=== PATIENT | female | born 1985 | race Caucasian/White ===

== ENCOUNTER 2018-11-29 17:31 | Emergency (ER) | payer OTHER ==
--- NOTE | 2018-11-29 20:26 | EDM.PDOC ---
ED HPI GENERAL MEDICAL PROBLEM - General Chief Complaint: Laceration Stated Complaint: INJURY TO THUMB ON L HAND Time Seen by Provider: 11/29/18 17:31 Source of Information: Reports: Patient History Limitations: Reports: No Limitations - History of Present Illness INITIAL COMMENTS - FREE TEXT/NARRATIVE: Pt. states that she cut her L thumb with a bread knife. Her tetanus is up to date (2011). She states that the injury is quite superficial to the thumb. Denies injury elsewhere. She states that this happened just prior to coming to the ED. Onset: Today Location: Reports: Upper Extremity, Left Left Finger-Thumb Pain Score (Numeric/FACES): 1 - Related Data Allergies Allergy/AdvReac Type Severity Reaction Status Date / Time No Known Allergies Allergy Verified 11/29/18 17:54 Home Meds: Home Meds . [No Known Home Meds] 11/29/18 [History] Past Medical History - Past Health History Medical/Surgical History: Denies Medical/Surgical History Social & Family History - Tobacco Use Smoking Status *Q: Never Smoker ED ROS GENERAL - Review of Systems Review Of Systems: See Below Constitutional: Reports: No Symptoms HEENT: Reports: No Symptoms Respiratory: Reports: No Symptoms Cardiovascular: Reports: No Symptoms Endocrine: Reports: No Symptoms GI/Abdominal: Reports: No Symptoms : Reports: No Symptoms Musculoskeletal: Reports: No Symptoms Skin: Reports: Wound Neurological: Reports: No Symptoms Psychiatric: Reports: No Symptoms Hematologic/Lymphatic: Reports: No Symptoms Immunologic: Reports: No Symptoms ED EXAM, SKIN/RASH Exam: See Below Exam Limited By: No Limitations General Appearance: Alert, WD/WN, No Apparent Distress Skin: Warm, Dry, Intact, Normal Color, No Rash, Other (subcentimeter laceration noted to pad of L thumb.) ED SKIN PROCEDURES - Laceration/Wound Repair Left Digit - 1st (Thumb) Appearance: Subcutaneous Distal NVT: Neuro & Vascular Intact, No Tendon Injury Skin Prep: Chlorhexidine (Hibiciens), Saline Closed with: Dermabond Lac/Wound length In cm: 1 Course - Vital Signs Last Recorded V/S: Last Vital Signs Temp 36.6 C 11/29/18 17:31 Pulse 75 11/29/18 17:31 Resp 16 11/29/18 17:31 BP 126/78 11/29/18 17:31 Pulse Ox 100 11/29/18 17:31 Departure - Departure Time of Disposition: 18:10 Disposition: Home, Self-Care 01 Clinical Impression: Laceration - Discharge Information Instructions: Laceration Care, Adult, Stitches, Maury, or Adhesive Wound Closure Referrals: Thuy Jacobson DO [Primary Care Provider] - Forms: ED Department Discharge Additional Instructions: Keep area dry for 24 hours. Tylenol and ibuprofen as needed for discomfort. Return to ER or follow-up in clinic if there is any redness, swelling, or discharge from the area. - Assessment/Plan Plan: Keep area dry for 24 hours. Tylenol and ibuprofen as needed for discomfort. Return to ER or follow-up in clinic if there is any redness, swelling, or discharge from the area.
== END 2018-11-29 18:13 | disposition home or self-care (01) ==
LOC: VM.ED 17:31
DX: S61.012A Laceration without foreign body of left thumb without damage to nail, initial encounter (principal); W26.0XXA Contact with knife, initial encounter
CPT/HCPCS: 12001; 99282